=== PATIENT | female | born 1945 | race Caucasian/White ===

== ENCOUNTER → 2018-10-09 | Outpatient (CLI) | payer OTHER | LOC: RAD 01:23 | DX: Z12.31 Encounter for screening mammogram for malignant neoplasm of breast (principal) ==

== ENCOUNTER → 2019-09-30 | Outpatient (CLI) | payer OTHER | LOC: BC 13:21 | DX: Z12.31 Encounter for screening mammogram for malignant neoplasm of breast (principal) ==